=== PATIENT | male | born 1975 | race Caucasian/White ===

== ENCOUNTER 2018-03-07 13:07 | Emergency (ER) | payer OTHER ==
[2018-03-07] MEDS: TETRACAINE 0.5% 4 ML OPH RIGHT EYE (15:30)
[2018-03-07] MEDS: FLUORESCEIN STRIP RIGHT EYE (15:30)
== END 2018-03-07 15:59 | disposition home or self-care (01) ==
LOC: FTE 13:07
DX: H57.11 Ocular pain, right eye (principal); F17.210 Nicotine dependence, cigarettes, uncomplicated; R40.2412 Glasgow coma scale score 13-15, at arrival to emergency department
CPT/HCPCS: 99283; Z7502